=== PATIENT | female | born 1940 | race Caucasian/White ===

== ENCOUNTER → 2017-04-21 | Outpatient (CLI) | payer OTHER, BC | END | disposition home or self-care (01) | DX: M17.11 Unilateral primary osteoarthritis, right knee (principal); R26.2 Difficulty in walking, not elsewhere classified; M25.661 Stiffness of right knee, not elsewhere classified; M25.561 Pain in right knee; Z74.1 Need for assistance with personal care | CPT/HCPCS: 97161 GP; 97165 GO; 97530 GP; 97535 GO; G8978 GP; G8979 GP; G8980 GP; G8984 GO; G8985 GO; G8986 GO ==

== ENCOUNTER 2017-05-11 21:31 | Inpatient (IN) | payer OTHER, BC ==
[~2017-05-11] VITALS: Ht 165.1 cm; Wt 94.0 kg
[~2017-05-11 21:31] MED LIST: ASPIR 8181 M1 PO; CARDIZEM CD,CA240 MG PO; GLIMEPIRIDE4 MG PO; JANUVIA100 MG PO; METFORMIN HCL500 MG PO; NOLVADEX20 MG PO; PLAVIX75 MG PO; SYNTHROID150 MCG PO; TOPROL XL100 MG PO; ULORIC40 MG PO; ZESTORETIC 20-1 EAC1 PO; ZOCOR20 MG PO
[2017-05-12 07:54] VITALS: BP 177/75
[2017-05-12 13:40] VITALS: BP 169/73
[2017-05-12 15:08] VITALS: BP 147/61
[2017-05-12 18:02] VITALS: BP 169/75
[2017-05-12 20:21] VITALS: BP 145/67
[2017-05-13] VITALS (7 sets, daily range): BP systolic 136–188; BP diastolic 61–81
[2017-05-13 06:44] LABS: HEMATOCRIT 34.3 % (36.0-46.0); HEMOGLOBIN 11.3 G/DL (11.9-15.5)
[2017-05-13 07:09] LABS: CHLORIDE 97 MEQ/L (99-109); CREATININE 0.8 MG/DL (0.6-1.3); GFR ESTIMATE (CALCULATED) > 59 mL/min/; GLUCOSE 157 mg/dL (70-99); POTASSIUM 3.5 MEQ/L (3.7-5.4); SODIUM 139 MEQ/L (136-147); UREA NITROGEN (BUN) 17 mg/dL (9-23)
[2017-05-13] MEDS ORDERED: ENDOCET 5-3251 EACH PO (13:58)
[2017-05-13] MEDS ORDERED: ELIQUIS2.5 MG PO (13:58)
[2017-05-14] VITALS (8 sets, daily range): BP systolic 124–166; BP diastolic 68–94
[2017-05-14 04:44] LABS: HEMATOCRIT 33.8 % (36.0-46.0); HEMOGLOBIN 11.8 G/DL (11.9-15.5); MCV 91.1 FL (83-99)
[2017-05-14 05:03] LABS: CHLORIDE 99 mEq/L (99-109); POTASSIUM 3.6 mEq/L (3.7-5.4); SODIUM 135 mEq/L (136-147)
[2017-05-14 05:04] LABS: GLUCOSE 221 mg/dL (70-99)
[2017-05-14 05:08] LABS: CREATININE 0.8 mg/dL (0.6-1.3); GFR ESTIMATE (CALCULATED) > 59 mL/min/
[2017-05-14 05:09] LABS: UREA NITROGEN (BUN) 10 mg/dL (9-23)
[2017-05-14 21:35] LABS: BASOPHIL (%) 0.2 % (0-1); EOSINOPHIL (%) 0 % (0-5); HEMATOCRIT 32.3 % (36.0-46.0); HEMOGLOBIN 10.8 G/DL (11.9-15.5); IMMATURE GRANULOCYTE (%) 1.7 % (0.0-0.7); LYMPHOCYTE (%) 15.5 % (15-42); LYMPHOCYTE COUNT 1.8 K/uL (1.0-2.8); MCH 30.4 PG (29.0-34.0); MCHC 33.4 G/DL (30.0-36.0); MONOCYTE (%) 11.9 % (3-12); MONOCYTE COUNT 1.4 K/uL (0-0.8); NEUTROPHIL (%) 70.7 % (45-76); NEUTROPHIL COUNT 8.1 K/uL (1.8-6.4); PLATELET COUNT 233 K/uL (156-360); RBC DIS.WIDTH-CV 14.1 % (11.8-14.6); RBC DIS.WIDTH-SD 47.5 % (39-53); RED BLOOD COUNT 3.55 M/uL (3.80-5.20); WHITE BLOOD COUNT 11.5 K/uL (4.1-10.2)
[2017-05-14 21:44] LABS: ALBUMIN 3.1 G/DL (3.2-4.8); CHLORIDE 97 MEQ/L (99-109); DIRECT BILIRUBIN 0.1 mg/dL (0.0-0.3); POTASSIUM 3.3 MEQ/L (3.7-5.4); SODIUM 133 MEQ/L (136-147); TOTAL BILIRUBIN 0.7 MG/DL (0.0-1.0)
[2017-05-14 21:50] LABS: ALKALINE PHOSPHATASE 45 IU/L (3-129); ALT (GPT) 11 IU/L (3-49); AST (GOT) 11 IU/L (2-34); CREATININE 0.9 MG/DL (0.6-1.3); GFR ESTIMATE (CALCULATED) > 59 mL/min/; GLUCOSE 186 mg/dL (70-99); TOTAL PROTEIN 6.2 G/DL (6.4-8.3); UREA NITROGEN (BUN) 17 mg/dL (9-23)
[2017-05-14 21:53] LABS: TROP-I INTERPRETATION NEGATIVE; TROPONIN-I 0.27 ng/mL (0.0-0.30)
[2017-05-14 22:28] LABS: APPEARANCE SL.HAZY ((CLEAR)); BILIRUBIN NEGATIVE; BLOOD SMALL; COLOR YELLOW ((YELLOW)); GLUCOSE (STRIP) NEGATIVE; KETONES 5; LEUKOCYTES TRACE; NITRITE NEGATIVE; PROTEIN (STRIP) NEGATIVE; SPECIFIC GRAVITY 1.013 (1.000-1.030); UROBILINOGEN 0.2 MG/DL (0.2-1.0)
[2017-05-14 22:35] LABS: BACTERIA NONE SEEN /HPF; EPITHELIAL CELLS 1+ /HPF; MUCUS NONE SEEN /LPF; RED BLOOD CELLS 0-5 /HPF (0-5); UCUL ADDED? YES
[2017-05-14 22:42] LABS: THYROTROPIN (TSH) 0.25 MIU/L (0.4-5.5)
[2017-05-14 22:56] LABS: INTER. NORMALIZED RATIO 1.4
[2017-05-14 22:59] LABS: PTT 25.2 SEC (25-37)
[2017-05-15 00:37] VITALS: BP 126/70
[2017-05-15 01:41] LABS: PHOSPHORUS 2.3 mg/dL (2.5-4.9)
[2017-05-15 03:50] VITALS: BP 117/59
[2017-05-15 05:51] LABS: HEMATOCRIT 26.6 % (36.0-46.0); MCH 30.4 PG (29.0-34.0); MCHC 33.1 G/DL (30.0-36.0); PLATELET COUNT 190 K/uL (156-360); RBC DIS.WIDTH-CV 14.3 % (11.8-14.6); RBC DIS.WIDTH-SD 48.2 % (39-53); RED BLOOD COUNT 2.89 M/uL (3.80-5.20); WHITE BLOOD COUNT 9.3 K/uL (4.1-10.2)
[2017-05-15 05:53] LABS: HEMOGLOBIN 8.8 G/DL (11.9-15.5)
[2017-05-15 06:06] LABS: TROP-I INTERPRETATION NEGATIVE; TROPONIN-I 0.18 ng/mL (0.0-0.30)
[2017-05-15 08:00] VITALS: BP 119/59
[2017-05-15 11:30] VITALS: BP 135/66
[2017-05-15 12:49] LABS: TROP-I INTERPRETATION NEGATIVE; TROPONIN-I 0.15 ng/mL (0.0-0.30)
[2017-05-15 15:30] VITALS: BP 122/60
[2017-05-15 19:15] VITALS: BP 137/63
[2017-05-16] VITALS (7 sets, daily range): BP systolic 123–137; BP diastolic 63–79
[2017-05-16 08:19] LABS: CHLORIDE 103 MEQ/L (99-109); CREATININE 0.9 MG/DL (0.6-1.3); GFR ESTIMATE (CALCULATED) > 59 mL/min/; SODIUM 138 MEQ/L (136-147); UREA NITROGEN (BUN) 14 mg/dL (9-23)
[2017-05-16 08:52] LABS: GLUCOSE 76 mg/dL (70-99); POTASSIUM 4.3 MEQ/L (3.7-5.4)
[2017-05-17 05:04] VITALS: BP 157/80
[2017-05-17 05:52] LABS: CHLORIDE 107 MEQ/L (99-109); CREATININE 0.8 MG/DL (0.6-1.3); GFR ESTIMATE (CALCULATED) > 59 mL/min/; GLUCOSE 95 mg/dL (70-99); POTASSIUM 4.3 MEQ/L (3.7-5.4); SODIUM 139 MEQ/L (136-147); UREA NITROGEN (BUN) 18 mg/dL (9-23)
[2017-05-17 08:20] VITALS: BP 148/80
[2017-05-17 11:20] VITALS: BP 156/86
[2017-05-17 12:42] LABS: HEMATOCRIT 32.4 % (36.0-46.0); HEMOGLOBIN 10.1 G/DL (11.9-15.5); MCH 30.6 PG (29.0-34.0); MCHC 31.2 G/DL (30.0-36.0); MCV 98.2 FL (83-99); NRBC (%) 0.4 /100 WBC (0-0); PLATELET COUNT 289 K/uL (156-360); RBC DIS.WIDTH-CV 14.6 % (11.8-14.6); WHITE BLOOD COUNT 5.5 K/uL (4.1-10.2)
[2017-05-17 15:00] VITALS: BP 149/81
[2017-05-17 19:10] VITALS: BP 158/88
[2017-05-18 00:10] VITALS: BP 152/78
[2017-05-18 04:00] VITALS: BP 158/70
[2017-05-18 05:44] LABS: CHLORIDE 106 MEQ/L (99-109); CREATININE 0.8 MG/DL (0.6-1.3); GFR ESTIMATE (CALCULATED) > 59 mL/min/; GLUCOSE 117 mg/dL (70-99); POTASSIUM 4.6 MEQ/L (3.7-5.4); SODIUM 139 MEQ/L (136-147); UREA NITROGEN (BUN) 20 mg/dL (9-23)
[2017-05-18 06:11] LABS: HEMATOCRIT 32.7 % (36.0-46.0); HEMOGLOBIN 10.5 G/DL (11.9-15.5); MCH 30.1 PG (29.0-34.0); MCHC 32.1 G/DL (30.0-36.0); NRBC (%) 0.3 /100 WBC (0-0); PLATELET COUNT 329 K/uL (156-360); RBC DIS.WIDTH-CV 14.6 % (11.8-14.6); RBC DIS.WIDTH-SD 50.5 % (39-53); RED BLOOD COUNT 3.49 M/uL (3.80-5.20); WHITE BLOOD COUNT 7.6 K/uL (4.1-10.2)
[2017-05-18 06:12] LABS: MCV 93.7 FL (83-99)
[2017-05-18 07:23] VITALS: BP 169/72
[2017-05-18] MEDS ORDERED: XARELTO15 MG PO (08:49)
[2017-05-18 11:13] LABS: C DIFF TOXIN NEGATIVE (NEGATIVE)
[2017-05-18 11:20] VITALS: BP 152/70
== END 2017-05-18 14:12 | DRG 470 ==
LOC: ENRESERV 21:31 → 2SOUTH 05-12 07:18 → 4EAST 05-12 07:18 → 3WEST 05-12 07:18 → 2SOUTH 05-12 09:50 → 3WEST 05-12 13:16 → 2SOUTH 05-12 15:19 → 3WEST 05-14 07:07 → ENRESERV 05-14 07:09 → 3EAST 05-14 14:40 → ENRESERV 05-14 21:27 → 4EAST 05-14 21:30
PROVIDERS: Hospitalist; Internal Medicine; Internal Medicine Cardiovascular Disease; Orthopaedic Surgery; Physician Assistant
PROC: 0SRC0J9 Replacement of Right Knee Joint with Synthetic Substitute, Cemented, Open Approach (ICD-10-PCS; principal; 2017-05-12)
DX: M17.11 Unilateral primary osteoarthritis, right knee (principal); I26.99 Other pulmonary embolism without acute cor pulmonale; I97.89 Other postprocedural complications and disorders of the circulatory system, not elsewhere classified; E87.6 Hypokalemia; N63.0 Unspecified lump in unspecified breast; I10 Essential (primary) hypertension; E78.5 Hyperlipidemia, unspecified; E11.9 Type 2 diabetes mellitus without complications; E03.9 Hypothyroidism, unspecified; I48.1 Persistent atrial fibrillation; M10.9 Gout, unspecified; E66.9 Obesity, unspecified; Z79.01 Long term (current) use of anticoagulants; Z82.3 Family history of stroke; Z86.73 Personal history of transient ischemic attack (TIA), and cerebral infarction without residual deficits; Z79.899 Other long term (current) drug therapy; Z92.3 Personal history of irradiation; Z85.3 Personal history of malignant neoplasm of breast; Z82.49 Family history of ischemic heart disease and other diseases of the circulatory system; Z86.711 Personal history of pulmonary embolism; Z79.84 Long term (current) use of oral hypoglycemic drugs; Z80.3 Family history of malignant neoplasm of breast
CPT/HCPCS: 71045; 71275; 80048; 80053; 81003; 82248; 82948; 83605; 84100; 84439; 84443; 84484; 85014; 85018; 85025; 85027; 85379; 85610; 85730; 87040; 87086; 87493; 93005; 93306; 93971; C1713; J0131; J1815; J1885; J1956; J2250; J3370; J7030; J7050; J7120